=== PATIENT | male | born 1965 | race Caucasian/White ===

== ENCOUNTER 2017-09-29 10:52 | Emergency (ER) | payer OTHER ==
[~2017-09-29] VITALS: Ht 188 cm; Wt 145.1 kg
[~2017-09-29 10:52] MED LIST: ATEN50TA2 PO
[2017-09-29 10:59] VITALS: BP 174/95
[2017-09-29 11:15] VITALS: BP 170/86
== END 2017-09-29 11:15 | disposition home or self-care (01) ==
LOC: MED 10:52
DX: Z46.6 Encounter for fitting and adjustment of urinary device (principal); I10 Essential (primary) hypertension; Z79.899 Other long term (current) drug therapy
CPT/HCPCS: 99281

== ENCOUNTER 2017-09-29 23:22 | Emergency (ER) | payer OTHER ==
[~2017-09-29] VITALS: Ht 188 cm; Wt 145.1 kg
[2017-09-29 23:27] VITALS: BP 153/82
[2017-09-30 00:06] LABS: APPEARANCE,URINE CLOUDY (CLEAR); BILIRUBIN,URINE NEGATIVE (NEGATIVE); BLOOD, URINE 3+ (NEGATIVE); COLOR,URINE YELLOW (YELLOW); LEUKOCYTE ESTERASE ,URINE 1+ (NEGATIVE); NITRITE, URINE POSITIVE (NEGATIVE); UGLUCOSE NEGATIVE (NEGATIVE)
[2017-09-30] MEDS ORDERED: LEVOFLOXACIN 500 MG TAB PO ONE (00:15)
[2017-09-30 00:39] VITALS: BP 139/75
[2017-09-30 00:42] LABS: RBC,URINE >100 /HPF (0-5)
[2017-09-30 00:43] LABS: WBC,URINE 60-80 /HPF (0-5)
== END 2017-09-30 00:38 | disposition home or self-care (01) ==
LOC: MED 23:22
DX: N39.0 Urinary tract infection, site not specified (principal); I10 Essential (primary) hypertension; Z79.899 Other long term (current) drug therapy
CPT/HCPCS: 81001; 87086; 87186; 99283; 99284

== ENCOUNTER 2017-10-12 19:30 | Emergency (ER) | payer OTHER ==
[~2017-10-12] VITALS: Ht 188 cm; Wt 145.1 kg
[2017-10-12 19:37] VITALS: BP 149/84
--- NOTE | 2017-10-12 19:40 | NUR ---
TO LOBBY, A/W BED, AMBULATORY, VSS, ERMD NOTED
--- NOTE | 2017-10-12 21:34 | NUR ---
PT TAKEN TO US FROM [facility]
--- NOTE | 2017-10-12 22:27 | NUR ---
PT TAKEN TO BED 4
--- NOTE | 2017-10-12 22:36 | NUR ---
51 YO M BIB FOR TESTICULAR PAIN THAT BEGAN AT 1430 THIS AFTERNOON. PT STATES HE WAITED A LITTLE WHILE IN HOPES IT WOULD GO AWAY. REPORTS HE HAD PROSTATE REDUCTION SURGERY ON 09/22/17 AND SINCE HAS HAD A UTI AND NOW THESE SYMTPOMS. PT JUST TOOK LAST PILL OF ANTIBIOTIC REGIMEN THIS AFTERNOON. DENIES N/V/D/ABD PAIN/FEVER/CHILLS. A&O X 4. GCS 15. CMS INTACT. RR EVEN AND UNLABORED. LUNGS CLEAR. ER MD JARA NOTIFIED. PT NEEDS MET. WILL CONTINUE TO MONITOR.
--- NOTE | 2017-10-12 23:01 | NUR ---
Dr. Pedraza evaluating patient at [facility]
[2017-10-12] MEDS ORDERED: KETOROLAC 60 MG/2 ML VIAL IM ONE (23:20)
[2017-10-12 23:45] VITALS: BP 148/92
--- NOTE | 2017-10-12 23:45 | NUR ---
Patient discharged with v/s stable. Written and verbal after care instructions given and explained. Patient alert, oriented and verbalized understanding of instructions. Ambulatory with steady gait. All questions addressed prior to discharge. ID band removed. Patient advised to follow up with PMD. Rx of DOXYCYCLINE, MOTRIN given. Patient educated on indication of medication including possible reaction and side effects. Opportunity to ask questions provided and answered.
== END 2017-10-12 23:45 | disposition home or self-care (01) ==
LOC: MED 19:30
DX: N45.2 Orchitis (principal); N45.1 Epididymitis; I10 Essential (primary) hypertension; Z79.899 Other long term (current) drug therapy
CPT/HCPCS: 76870; 96372; 99284; J1885; Q0092

== ENCOUNTER 2017-11-04 14:32 | Emergency (ER) | payer OTHER ==
[~2017-11-04] VITALS: Ht 190.5 cm; Wt 139.3 kg
[2017-11-04 14:36] VITALS: BP 112/55
--- NOTE | 2017-11-04 14:40 | NUR ---
MEDICATED WITH TYLENOL FOR FEVER
[2017-11-04] MEDS ORDERED: ACETAMINOPHEN EXTRA STRENGTH 500 MG TAB ONE (14:45)
--- NOTE | 2017-11-04 15:03 | NUR ---
51 YO M BIB FAMILY W/ C/O FEVER, RASH X 1 DAY. PT STATES HE HAS INTERMITTENT SOB, BUT DENIES SOB AT THIS TIME. NO S/S OF RESPIRATORY DISTRESS. NO SWELLING NOTED TO THE HANDS OR FACE AT THIS TIME. STARTED TAKING BATRIM YESTERDAY AND SYMPTOMS BEGAN, TAKEN FOR TESTICULAR SWELLING BY UROLOGIST. PT REPORTS HE TOOK 1 DOSE LAST NIGHT AND THE SYMPTOMS BEGAN, AND HE TOOK ANOTHER DOSE THIS AM, SYMPTOMS WORSENED/PERSISTED. PT PRESENTS WITH REDNESS/RASH NOTED TO HIS FACE AND OVER TRUNK/EXTREMITIES. PT AAOX4. GCS 15. CMS INTACT. RR EVEN AND UNLABORED. LUNGS BILATERALLY CLEAR. ABD SOFT, NON-TENDER. ER MD MARCANO NOTIFIED. PT NEEDS MET. SAFETY PRECAUTIONS IN PLACE. WILL CONTINUE TO MONITOR.
[2017-11-04] MEDS ORDERED: diphenhydrAMINE 50 MG CAP PO ONE (15:55)
--- NOTE | 2017-11-04 16:00 | NUR ---
Pt resting comfortably in [facility] at this time. vss. safety precautions in place. will continue to monitor.
[2017-11-04 16:26] VITALS: BP 111/61
--- NOTE | 2017-11-04 16:27 | NUR ---
Patient discharged with v/s stable. Written and verbal after care instructions given and explained. Patient alert, oriented and verbalized understanding of instructions. Ambulatory with steady gait. All questions addressed prior to discharge. ID band removed. Patient advised to follow up with PMD. Rx of Benadryl and Doxycycline given. Patient educated on indication of medication including possible reaction and side effects. Opportunity to ask questions provided and answered.
== END 2017-11-04 16:27 | disposition home or self-care (01) ==
LOC: MED 14:32
DX: R06.02 Shortness of breath (principal); R21 Rash and other nonspecific skin eruption; T37.0X5A Adverse effect of sulfonamides, initial encounter; N39.0 Urinary tract infection, site not specified; I10 Essential (primary) hypertension; Z79.899 Other long term (current) drug therapy; Z88.2 Allergy status to sulfonamides; Z88.8 Allergy status to other drugs, medicaments and biological substances; Y92.89 Other specified places as the place of occurrence of the external cause
CPT/HCPCS: 99283; Q0163

== ENCOUNTER 2019-07-06 19:18 | Emergency (ER) | payer OTHER ==
[~2019-07-06] VITALS: Ht 188 cm; Wt 155.3 kg
[2019-07-06 19:26] VITALS: BP 168/85
--- NOTE | 2019-07-06 19:36 | NUR ---
PATIENT AMBULATED TO BED 12.
--- NOTE | 2019-07-06 19:36 | NUR ---
53 Y/O MALE C/O COUGH, CONGESTION, AND RUNNY NOISE X1 DAY. 5/10 PAIN PROVOKED WHEN COUGHING. PATIENT STATES THAT PHLEGM IS PRESENT. CLEAR/DIMINISHED BREATH SOUNDS BILATERALLY (ANTERIOR/POSTERIOR). ERMD MADE AWARE OF STATUS. SIDE RAILS X1. PLACED ON PULSE OXIMETER. PMH:HTN SOCIAL HX:SMOKER FOR 22 YEARS (CIGARS ONLY) RX:AMPLODIPINE
[2019-07-06] MEDS ORDERED: ALBUTEROL 0.083% 2.5 MG/3 ML NEBU INH ONE (21:40)
[2019-07-06] MEDS ORDERED: ALBUTEROL SULFATE/IPRATROPIU 3 ML SOL IH ONE (21:40)
[2019-07-06 22:31] VITALS: BP 168/85
--- NOTE | 2019-07-06 22:31 | NUR ---
Patient discharged with v/s stable. Written and verbal after care instructions given and explained. Patient alert, oriented and verbalized understanding of instructions. Ambulatory with steady gait. All questions addressed prior to discharge. ID band removed. Patient advised to follow up with PMD. Rx of VENTOLIN given. Patient educated on indication of medication including possible reaction and side effects. Opportunity to ask questions provided and answered.
== END 2019-07-06 22:31 | disposition home or self-care (01) ==
LOC: MED 19:18
DX: J20.9 Acute bronchitis, unspecified (principal); I10 Essential (primary) hypertension; F17.210 Nicotine dependence, cigarettes, uncomplicated; Z88.1 Allergy status to other antibiotic agents; Z88.8 Allergy status to other drugs, medicaments and biological substances; Z79.899 Other long term (current) drug therapy
CPT/HCPCS: 71045; 94640; 99283; J7613; J7620; Q0092

== ENCOUNTER 2020-02-19 08:21 | Emergency (ER) | payer OTHER ==
[~2020-02-19] VITALS: Ht 188 cm; Wt 145.1 kg
[2020-02-19 08:32] VITALS: BP_SYST 157; BP_SYST 209; BP_DIAS 103; BP_DIAS 118
--- NOTE | 2020-02-19 08:52 | NUR ---
54 Y/O PT C/O LEFT KNEE PAIN S/P TWISTED YESTERDAY WHILE WALKING. PT AMBULATES WITH LIMPING GAIT. PT STATES HE DID NOT SLEEP LAST NIGHT AND HE THINKS THAT CAUSES HIS HIGH BLOOD PRESSURE. DENIES OTHER INJURY/TRAUMA TO CATE KNEES. PMH: HTN MEDS: NOT COMPLIANT
[2020-02-19] MEDS ORDERED: IBUPROFEN 600 MG TAB PO ONE (09:05)
--- NOTE | 2020-02-19 09:06 | NUR ---
XRAY IS AT BEDSIDE.
[2020-02-19 09:46] VITALS: BP 157/103
== END 2020-02-19 09:47 | disposition home or self-care (01) ==
LOC: MED 08:21
DX: M25.562 Pain in left knee (principal); I10 Essential (primary) hypertension; Z88.1 Allergy status to other antibiotic agents; Z88.2 Allergy status to sulfonamides; Z79.899 Other long term (current) drug therapy
CPT/HCPCS: 73562; 99283; Q0092

== ENCOUNTER 2021-05-16 11:14 | Emergency (ER) | payer OTHER ==
[~2021-05-16] VITALS: Ht 188 cm; Wt 154.2 kg
[2021-05-16 11:42] VITALS: BP 169/95
[2021-05-16] MEDS ORDERED: IBUP-2213 PO (12:57)
[2021-05-16] MEDS ORDERED: ACET-8386 PO (12:57)
--- NOTE | 2021-05-16 13:30 | NUR ---
PT DC PAPERWORK DONE, PT NOT IN THE LOBBY.
--- NOTE | 2021-05-16 13:45 | NUR ---
PT DC PAPERWORK READY, SECOND TIME CHECKING, PT NOT IN THE LOBBY.
--- NOTE | 2021-05-16 14:00 | NUR ---
THIRD TIME CHECKING THE LOBBY AND OUTSIDE FOR THE PT. PT IS NOT IN THE LOBBY OR OUTSIDE FOR DC PAPERWORK.
--- NOTE | 2021-05-16 14:03 | NUR ---
Note [email or web address] in EDM - 05/16/21 at 1422 by [email or web address] Patient discharged with v/s stable. Written and verbal after care instructions given and explained. Patient alert, oriented and verbalized understanding of instructions. Ambulatory with steady gait. All questions addressed prior to discharge. ID band removed. Patient advised to follow up with PMD. Rx of IBUPROFEN, HYDROCODONE/ACETAMINOPHEN given. Opportunity to ask questions provided and answered.
--- NOTE | 2021-05-16 14:03 | NUR ---
PT LEFT WITHOUT DC PAPERWORK.
== END 2021-05-16 14:02 | disposition home or self-care (01) ==
LOC: MED 11:14
DX: S83.8X2A Sprain of other specified parts of left knee, initial encounter (principal); I10 Essential (primary) hypertension; Z88.2 Allergy status to sulfonamides; Z88.8 Allergy status to other drugs, medicaments and biological substances; X58.XXXA Exposure to other specified factors, initial encounter; Y93.89 Activity, other specified; Y92.89 Other specified places as the place of occurrence of the external cause; Y99.8 Other external cause status
CPT/HCPCS: 99281

== ENCOUNTER 2021-09-25 13:55 | Emergency (ER) | payer OTHER ==
[~2021-09-25] VITALS: Ht 188 cm; Wt 158.5 kg
[~2021-09-25 13:55] MED LIST changes: +ACET-8386 PO; +IBUP-2213 PO
[2021-09-25 14:10] VITALS: BP 150/99
--- NOTE | 2021-09-25 14:50 | NUR ---
ALICE MACIAS AT BEDSIDE EVALUATING PT
[2021-09-25] MEDS ORDERED: KETOROLAC 60 MG/2 ML VIAL IM ONE (14:55)
[2021-09-25] MEDS ORDERED: CYCLOBENZAPRINE 10 MG TAB PO ONE (14:55)
[2021-09-25] MEDS ORDERED: CYCL-711 PO (15:32)
[2021-09-25] MEDS ORDERED: NAPR-54 PO (15:32)
[2021-09-25 15:52] VITALS: BP 155/95
--- NOTE | 2021-09-25 16:09 | NUR ---
Patient discharged with v/s stable. Written and verbal after care instructions FOR SCIATICA given and explained. Patient alert, oriented and verbalized understanding of instructions. Ambulatory with steady gait. All questions addressed prior to discharge. ID band removed. Patient advised to follow up with PMD. Rx of FLEXERIL AND NARPOXEN given. Opportunity to ask questions provided and answered.
== END 2021-09-25 16:10 | disposition home or self-care (01) ==
LOC: MED 13:55
DX: M54.42 Lumbago with sciatica, left side (principal); I10 Essential (primary) hypertension; Z79.1 Long term (current) use of non-steroidal anti-inflammatories (NSAID); Z79.899 Other long term (current) drug therapy; Z79.891 Long term (current) use of opiate analgesic; Z88.2 Allergy status to sulfonamides; Z88.1 Allergy status to other antibiotic agents
CPT/HCPCS: 81002; 96372; 99283; J1885

== ENCOUNTER 2022-09-28 13:22 | Emergency (ER) | payer OTHER ==
[~2022-09-28] VITALS: Ht 188 cm; Wt 154.7 kg
[~2022-09-28 13:22] MED LIST changes: -ACET-8386 PO; +ACET-8905 PO; +CYCL-711 PO; +NAPR-54 PO
[2022-09-28 14:32] VITALS: BP 148/81
--- NOTE | 2022-09-28 14:58 | NUR ---
AMB. TO BED 12 W
[2022-09-28 15:11] LABS: BASOPHILS % (AUTO) 0.6 % (0.0-2.0); EOSINOPHILS # (AUTO) 0.1 K/uL (0-0.4); EOSINOPHILS % (AUTO) 0.9 % (0.0-4.0); HEMATOCRIT 41.4 % (36-52); LYMPHOCYTES # (AUTO) 1.3 K/uL (2.0-11.5); LYMPHOCYTES % (AUTO) 18.4 % (20.5-51.1); MEAN CORPUSCULAR HEMOGLOBIN 30 pg (27-31); MEAN CORPUSCULAR HGB CONC 34 g/dL (33-37); MEAN CORPUSCULAR VOLUME 87.2 fL (80-94); MONOCYTES # (AUTO) 0.4 K/uL (0.8-1.0); MONOCYTES % (AUTO) 5.8 % (1.7-9.3); NEUTROPHILS # (AUTO) 5.1 K/uL (1.8-7.7); NEUTROPHILS % (AUTO) 74.3 % (42.2-75.2); PLATELET COUNT (AUTO) 142 K/uL (140-450); RED BLOOD CELL COUNT(AUTO) 4.75 MIL/uL (4.20-6.10); RED CELL DISTRIBUTION WIDTH 13.7 % (11.6-13.7); WHITE BLOOD COUNT (AUTO) 6.9 K/uL (4.8-10.8)
[2022-09-28 15:37] LABS: ALBUMIN 3.5 g/dL (3.4-5.0); CARBON DIOXIDE 28.7 mmol/L (21-32); POTASSIUM 4.7 mmol/L (3.5-5.1)
--- NOTE | 2022-09-28 15:40 | NUR ---
56YO M PRESENTS W/HIGH BLOOD SUGAR, PT STATES HE CHECKED HIS BLOOD SUGAR AT HOME - 500'S, DEL ANGEL, DIZZY, THIRSTHY, INCREASE URINE X 2 DAYS, PT DIAGNOSED W/DM APRIL 2022 RX METFORMIN, NOT TAKING HIS MEDS, DENIES DYSURIA, FEVER, N,V,D, NAD. HX: HTN, DM, ECZEMA
[2022-09-28 16:45] LABS: APPEARANCE,URINE CLEAR (CLEAR); BILIRUBIN,URINE NEGATIVE (NEGATIVE); BLOOD, URINE NEGATIVE (NEGATIVE); COLOR,URINE YELLOW (YELLOW); LEUKOCYTE ESTERASE ,URINE NEGATIVE (NEGATIVE); NITRITE, URINE NEGATIVE (NEGATIVE); PH,URINE 5.5 (5.0-9.0); UGLUCOSE 3+ (NEGATIVE)
[2022-09-28] MEDS ORDERED: NACL 0.9% 2,000 ML IV ONE (17:00)
[2022-09-28 19:10] VITALS: BP 171/102
--- NOTE | 2022-09-28 19:15 | NUR ---
Patient discharged with v/s stable. Written and verbal after care instructions given and explained. Patient verbalized understanding. Ambulatory with steady gait. All questions addressed prior to discharge. Advised to follow up with PMD.
== END 2022-09-28 19:15 | disposition home or self-care (01) ==
LOC: MED 13:22
DX: E11.65 Type 2 diabetes mellitus with hyperglycemia (principal); E86.0 Dehydration; I10 Essential (primary) hypertension; Z79.899 Other long term (current) drug therapy; Z88.1 Allergy status to other antibiotic agents; Z88.2 Allergy status to sulfonamides
CPT/HCPCS: 36415; 80053; 81003; 85025; 96360; 99283; J7030

== ENCOUNTER 2023-10-25 19:25 | Emergency (ER) | payer OTHER ==
[~2023-10-25] VITALS: Ht 185.4 cm; Wt 106.6 kg
[~2023-10-25 19:25] MED LIST changes: +NAPR-337 PO; -NAPR-54 PO
[2023-10-25 19:36] VITALS: BP 164/95; PULSE 81; RESP 14; TEMP 97.6; O2SAT 99
[2023-10-25 19:42] VITALS: O2SAT 99
[2023-10-25 19:59] LABS: BASOPHILS % (AUTO) 0.4 % (0.0-2.0); EOSINOPHILS # (AUTO) 0.1 K/uL (0-0.4); EOSINOPHILS % (AUTO) 0.8 % (0.0-4.0); HEMATOCRIT 40.3 % (36-52); HEMOGLOBIN 13.6 g/dL (12.0-18.0); LYMPHOCYTES # (AUTO) 1.4 K/uL (2.0-11.5); LYMPHOCYTES % (AUTO) 19.2 % (20.5-51.1); MEAN CORPUSCULAR HEMOGLOBIN 29 pg (27-31); MEAN CORPUSCULAR HGB CONC 34 g/dL (33-37); MEAN CORPUSCULAR VOLUME 87.3 fL (80-94); MONOCYTES # (AUTO) 0.6 K/uL (0.8-1.0); MONOCYTES % (AUTO) 7.6 % (1.7-9.3); NEUTROPHILS # (AUTO) 5.4 K/uL (1.8-7.7); PLATELET COUNT (AUTO) 122 K/uL (140-450); RED BLOOD CELL COUNT(AUTO) 4.62 MIL/uL (4.20-6.10); WHITE BLOOD COUNT (AUTO) 7.5 K/uL (4.8-10.8)
[2023-10-25 20:09] LABS: ANION GAP 13.9 (8-16); CALCIUM 8.5 mg/dL (8.5-10.1); POTASSIUM 3.9 mmol/L (3.5-5.1)
[2023-10-25] MEDS ORDERED: NAPR-337 PO (20:54)
[2023-10-25] MEDS: KETOROLAC 30 MG/ML VIAL IM ONE (21:06)
[2023-10-25] MEDS ORDERED: AMOX1TAB8 PO (22:51)
[2023-10-25] MEDS ORDERED: AZIT250T4 PO (22:51)
== END 2023-10-25 21:07 | disposition home or self-care (01) ==
LOC: MED 19:25
DX: J18.9 Pneumonia, unspecified organism (principal); R07.89 Other chest pain; E11.9 Type 2 diabetes mellitus without complications; I10 Essential (primary) hypertension; E78.00 Pure hypercholesterolemia, unspecified; Z79.1 Long term (current) use of non-steroidal anti-inflammatories (NSAID); Z79.2 Long term (current) use of antibiotics; Z79.899 Other long term (current) drug therapy; Z88.2 Allergy status to sulfonamides; Z88.1 Allergy status to other antibiotic agents
CPT/HCPCS: 36415; 71045; 80048; 84484; 85025; 93005; 96372; 99285; J1885

== ENCOUNTER 2024-02-27 17:44 | Emergency (ER) | payer OTHER ==
[~2024-02-27] VITALS: Ht 188 cm; Wt 149.7 kg
[~2024-02-27 17:44] MED LIST changes: +AMOX1TAB8 PO; +AZIT250T4 PO
[2024-02-27 18:25] VITALS: BP 162/104; PULSE 83; RESP 20; TEMP 98; O2SAT 98
[2024-02-27 19:26] VITALS: BP 175/98; PULSE 76; RESP 18; TEMP 98.2
[2024-02-27 19:27] VITALS: O2SAT 99
[2024-02-27 19:44] LABS: APPEARANCE,URINE CLEAR (CLEAR); BILIRUBIN,URINE NEGATIVE (NEGATIVE); BLOOD, URINE NEGATIVE (NEGATIVE); COLOR,URINE YELLOW (YELLOW); LEUKOCYTE ESTERASE ,URINE TRACE (NEGATIVE); NITRITE, URINE NEGATIVE (NEGATIVE); PH,URINE 5.5 (5.0-9.0); PROTEIN,URINE NEGATIVE (NEGATIVE); UGLUCOSE NEGATIVE (NEGATIVE); UROBILINOGEN,URINE 0.2 EU/dL (0.2 - 1)
[2024-02-27 20:03] LABS: BACTERIA,URINE FEW /HPF (None Seen); RBC,URINE 0-5 /HPF (0-5); SQUAMOUS EPITHELIAL CELL,UR 0-3 (FEW) /LPF (0-3 (FEW))
[2024-02-27 20:20] LABS: BASOPHILS % (AUTO) 0.4 % (0.0-2.0); EOSINOPHILS # (AUTO) 0.2 K/uL (0-0.4); HEMATOCRIT 39.8 % (36-52); HEMOGLOBIN 13.3 g/dL (12.0-18.0); LYMPHOCYTES # (AUTO) 1.6 K/uL (2.0-11.5); LYMPHOCYTES % (AUTO) 18.9 % (20.5-51.1); MEAN CORPUSCULAR HEMOGLOBIN 30 pg (27-31); MEAN CORPUSCULAR HGB CONC 33 g/dL (33-37); MEAN CORPUSCULAR VOLUME 88.6 fL (80-94); MONOCYTES # (AUTO) 0.7 K/uL (0.8-1.0); MONOCYTES % (AUTO) 8.2 % (1.7-9.3); NEUTROPHILS # (AUTO) 5.9 K/uL (1.8-7.7); NEUTROPHILS % (AUTO) 70.5 % (42.2-75.2); PLATELET COUNT (AUTO) 113 K/uL (140-450); RED BLOOD CELL COUNT(AUTO) 4.49 MIL/uL (4.20-6.10); RED CELL DISTRIBUTION WIDTH 14.2 % (11.6-13.7); WHITE BLOOD COUNT (AUTO) 8.4 K/uL (4.8-10.8)
[2024-02-27 20:36] LABS: CALCIUM 8.7 mg/dL (8.5-10.1); POTASSIUM 3.9 mmol/L (3.5-5.1)
[2024-02-27 20:42] LABS: ANION GAP 7.6 (8-16)
[2024-02-27 20:44] LABS: CARBON DIOXIDE 33.3 mmol/L (21-32)
[2024-02-27] MEDS ORDERED: LEVO-481 PO (21:18)
[2024-02-27] MEDS: ACETAMINOPHEN EXTRA STRENGTH 500 MG TAB PO ONE (21:25)
[2024-02-27] MEDS: KETOROLAC 30 MG/ML VIAL IM ONE (21:26)
[2024-02-27] MEDS: levoFLOXacin 500 MG TAB PO ONE (21:32)
== END 2024-02-27 21:44 | disposition home or self-care (01) ==
LOC: MED 17:44
DX: N45.3 Epididymo-orchitis (principal); E11.9 Type 2 diabetes mellitus without complications; I10 Essential (primary) hypertension; Z79.899 Other long term (current) drug therapy; Z88.2 Allergy status to sulfonamides; Z88.1 Allergy status to other antibiotic agents
CPT/HCPCS: 36415; 76870; 80048; 81001; 85025; 87086; 96372; 99285; J1885